=== PATIENT | female | born 1975 | race African-American/Black ===

== ENCOUNTER 2016-08-15 03:11 | Emergency (ER) | payer OTHER ==
[~2016-08-15] VITALS: Ht 165.1 cm; Wt 68.2 kg
[~2016-08-15 03:11] MED LIST: MOTRIN800 MG PO; ZOFRAN ODT4 MG PO
[2016-08-15 04:58] LABS: HEMATOCRIT 32.3 % (36.0-46.0); MCHC 31.9 G/DL (30.0-36.0); MCV 94.2 FL (83-99); MEAN PLAT.VOLUME 10.7 uM^3 (9.5-12.4); PLATELET COUNT 253 K/uL (156-360); RBC DIS.WIDTH-CV 12.5 % (11.8-14.6); RBC DIS.WIDTH-SD 43.5 % (39-53); RED BLOOD COUNT 3.43 M/uL (3.80-5.20)
[2016-08-15 05:10] LABS: CHLORIDE 107 mEq/L (99-109); POTASSIUM 3.3 mEq/L (3.7-5.4); SODIUM 140 mEq/L (136-147)
[2016-08-15 05:11] LABS: GLUCOSE 121 mg/dL (70-99)
[2016-08-15 05:13] LABS: ANION GAP 6 MEQ/L (2-14)
[2016-08-15 05:15] LABS: GFR ESTIMATE (CALCULATED) > 59 mL/min/; SERUM ETHYL ALCOHOL < 10 mg/dL
[2016-08-15 05:17] LABS: UREA NITROGEN (BUN) 18 mg/dL (9-23)
[2016-08-15 05:18] LABS: SALICYLATE < 5.0 MG/DL (15-30)
[2016-08-15 05:26] LABS: QUANTITATIVE HCG < 4.0 MIU/ML
[2016-08-15 06:22] LABS: ADD MEDTOX COMMENT Y; AMPHETAMINE NEGATIVE (500 ng/mL); BARBITURATES NEGATIVE (200 ng/mL); BENZODIAZEPINES NEGATIVE (150 ng/mL); COCAINE NEGATIVE (150 ng/mL); INTERNAL CONTROLS VALID? YES; METHADONE NEGATIVE (200 ng/mL); METHAMPHETAMINE NEGATIVE (500 ng/mL); OPIATES (MORPHINE) PRESUMPTIVE POSITIVE (100 ng/mL); OXYCODONE NEGATIVE (100 ng/mL); PHENCYCLIDINE NEGATIVE (25 ng/mL); PROPOXYPHENE NEGATIVE (300 ng/mL); THC CANNABINOIDS NEGATIVE (50 ng/mL); TRICYCLIC ANTIDEPRESSANTS NEGATIVE (300 ng/mL)
[2016-08-15] MEDS ORDERED: NARCAN4 MG NS (06:38)
[2016-08-15 06:54] VITALS: BP 137/87
== END 2016-08-15 06:54 | disposition home or self-care (01) ==
LOC: EME → EDBD 03:11 → EME 03:11
PROVIDERS: Emergency Medicine
DX: T40.601A Poisoning by unspecified narcotics, accidental (unintentional), initial encounter (principal); F11.10 Opioid abuse, uncomplicated
CPT/HCPCS: 80048; 84702; 84999; 85027; 99281; 99284; G0480; J2310